=== PATIENT | female | born 1960 | race African-American/Black ===

== ENCOUNTER → 2017-04-01 | Outpatient (CLI) | payer OTHER ==
[2017-04-01 13:43] LABS: Basophils % (A) 0 %; Eosinophils # (A) 0.2 k/uL (0-0.7); Eosinophils % (A) 2 %; HCT 41.3 % (34.0-46.0); HGB 12.5 gm/dL (11.4-16.0); Hypochromasia Slight; Lymphocytes # (A) 4.1 k/uL (1.0-4.8); Lymphocytes % (A) 48 %; MCH 26.9 pg (25.0-35.0); MCHC 30.4 g/dL (31.0-37.0); MCV 88.6 fL (80.0-100.0); Mean Platelet Volume 7.3; Monocytes # (A) 0.5 k/uL (0-1.0); Monocytes % (A) 6 %; Neutrophils # (A) 3.4 k/uL (1.3-7.7); Neutrophils % (A) 40 %; Platelet Count 240 k/uL (150-450); RBC 4.66 m/uL (3.80-5.40); RDW 12.1 % (11.5-15.5); WBC 8.4 k/uL (3.8-10.6)
[2017-04-01 13:58] LABS: ALT 47 U/L (9-52); AST 38 U/L (14-36); Albumin 4.2 g/dL (3.5-5.0); Alkaline Phosphatase 92 U/L (38-126); Anion Gap 11 mmol/L; Blood Urea Nitrogen 17 mg/dL (7-17); Carbon Dioxide 26 mmol/L (22-30); Chloride 101 mmol/L (98-107); Cholesterol 233 mg/dL (<200); Glucose 89 mg/dL (74-99); Potassium 4.8 mmol/L (3.5-5.1); Sodium 138 mmol/L (137-145); Total Bilirubin 0.7 mg/dL (0.2-1.3); Total Protein 8.4 g/dL (6.3-8.2); Triglycerides 60 mg/dL (<150)
[2017-04-01 14:06] LABS: HDL Cholesterol 117 mg/dL (40-60); LDL Cholesterol,Calculated 104 mg/dL (0-99)
== END | disposition home or self-care (01) ==
LOC: LABWHC1 12:58
PROVIDERS: ATTEND Internal Medicine
DX: B18.2 Chronic viral hepatitis C (principal)
CPT/HCPCS: 36415; 80053; 80061; 85025; 86803; 87522; 87902

== ENCOUNTER → 2017-05-14 | Outpatient (CLI) | payer OTHER ==
--- NOTE | 2017-05-14 15:17 | MM ---
Reason for exam: screening (asymptomatic). Baseline mammogram. History: Patient is postmenopausal. Physical Findings: Nurse Summary: 0.25cm nodule in the right breast at 9:30, 1:00 and 2:30, a 0.25cm nodule in the left breast at 11:00 and 2:30 (nurse dw). MG Screening Mammo w CAD Bilateral CC and MLO view(s) were taken. There are scattered fibroglandular densities. There are numerous bilateral subcentimeter masses. Some are marked with BB's. Ultrasound will be performed at the palpable and will be community engagement representative of the remaining masses. These results were verbally communicated with the patient and result sheet given to the patient on 05/14/17. ASSESSMENT: Incomplete: need additional imaging evaluation, BI-RAD 0 RECOMMENDATION: Ultrasound of both breasts.
--- NOTE | 2017-05-14 15:21 | USB ---
Reason for exam: additional evaluation requested from abnormal screening. History: Patient is postmenopausal. Physical Findings: Breast exam preformed at baseline screening. US Breast Workup Limited [place] Right breast ultrasound demonstrates a 5 x 2 x 6mm oval, solid lesion at 11 o'clock, a 4 x 3 x 4mm oval, solid, hypoechoic lesion at 11 o'clock and a 6 x 2 x 8mm oval, solid lesion at 2 o'clock. Left breast ultrasound demonstrates a 4 x 3 x 4mm oval, solid, hypoechoic lesion at 12 o'clock and a 6 x 4 x 4mm oval, solid, hypoechoic lesion at 2 o'clock. These all appear somewhat similar and in light of the patients history of multifocal trauma for breast injections multifocal fat necrosis is suspected and a 6 month follow up mammogram and ultrasound are recommended. These results were verbally communicated with the patient and result sheet given to the patient on 05/14/17. ASSESSMENT: Probably benign, BI-RAD 3 RECOMMENDATION: Follow-up diagnostic mammogram and ultrasound of both breasts in 6 months.
== END | disposition home or self-care (01) ==
LOC: RADMAMWWP 12:55
PROVIDERS: ATTEND Internal Medicine
DX: Z12.31 Encounter for screening mammogram for malignant neoplasm of breast (principal); R92.8 Other abnormal and inconclusive findings on diagnostic imaging of breast
CPT/HCPCS: 77067

== ENCOUNTER 2018-08-29 21:06 | Emergency (ER) | payer OTHER ==
[2018-08-29 21:51] VITALS: TEMP 98.2
--- NOTE | 2018-08-29 22:40 | XR ---
PROCEDURE: XR knee complete RT - 3V DATE AND TIME: 08/29/2018 10:02 PM CLINICAL INDICATION: PHH; Pain TECHNIQUE: Department protocol COMPARISON: None FINDINGS: There is no fracture or malalignment. Prominent tricompartmental osteoarthritis changes not ed. The soft tissues are unremarkable. IMPRESSION: NO ACUTE PROCESS.
--- NOTE | 2018-08-29 22:44 | XR ---
PROCEDURE: XR foot complete RT - 3V DATE AND TIME: 08/29/2018 10:02 PM CLINICAL INDICATION: PHH; Pain in toes TECHNIQUE: Department protocol COMPARISON: None FINDINGS: The proximal phalanx of the fourth toe shows a oblique linear lucency, having the appearanc e of nondisplaced fracture. Correlate for point tenderness. There is no other candidate for fracture or malalignment. The soft tissues are unremarkable. IMPRESSION: Candidate for fourth toe fracture; request correlation for point tenderness.
[2018-08-29] MEDS ORDERED: KETOROLAC 60 MG/2 ML VIAL IM STA (23:29)
--- NOTE | 2018-08-29 23:31 | ED ---
Lower Extremity Injury HPI - General Source: patient Mode of arrival: ambulatory Limitations: no limitations <Lora Ware - Last Filed: 08/29/18 23:20> <Isha Lee - Last Filed: 08/30/18 06:32> - General Chief Complaint: Extremity Injury, Lower Stated Complaint: Toe Injury Time Seen by Provider: 08/29/18 23:16 - History of Present Illness Initial Comments: Patient is a 58-year-old female who presents to the emergency department complaining of right foot pain times today. Patient states she was coming into her house and tripped over one of her shoes, jamming her toes and falling forward. Patient denies any other injuries except for right knee pain and pain in her right foot. Patient denies previous injuries of right foot. (Lora Ware) - Related Data Home Medications Medication Instructions Recorded Confirmed Cyanocobalamin (Vitamin B-12) 1,000 mcg PO DAILY 08/29/18 08/29/18 [Vitamin B-12] Hydrochlorothiazide 12.5 mg PO DAILY 08/29/18 08/29/18 Sertraline [Zoloft] 100 mg PO DAILY 08/29/18 08/29/18 Turmeric/Turmeric Root Extract 1 cap PO DAILY 08/29/18 08/29/18 [Turmeric 450-50 mg Capsule] traZODone HCL [Desyrel] 100 mg PO HS 08/29/18 08/29/18 Allergies Allergy/AdvReac Type Severity Reaction Status Date / Time No Known Allergies Allergy Verified 08/29/18 23:23 Review of Systems ROS Other: All systems not noted in ROS Statement are negative. <Lora Ware - Last Filed: 08/29/18 23:20> ROS Other: All systems not noted in ROS Statement are negative. <Isha Lee - Last Filed: 08/30/18 06:32> ROS Statement: Those systems with pertinent positive or pertinent negative responses have been documented in the HPI. Past Medical History Past Medical History: Heart Failure History of Any Multi-Drug Resistant Organisms: None Reported Past Surgical History: No Surgical Hx Reported Past Psychological History: Anxiety, Depression Smoking Status: Current every day smoker Past Alcohol Use History: None Reported Past Drug Use History: None Reported <Lora Ware - Last Filed: 08/29/18 23:20> General Exam Limitations: no limitations <Lora Ware - Last Filed: 08/29/18 23:20> - General Exam Comments Initial Comments: GENERAL: Well-appearing, well-nourished and in no acute distress. HEAD: Atraumatic, normocephalic. EYES: Pupils equal round and reactive to light, extraocular movements intact, sclera anicteric, conjunctiva are normal. ENT: TMs normal, nares patent, oropharynx clear without exudates. Moist mucous membranes. NECK: Normal range of motion, supple without lymphadenopathy or JVD. LUNGS: Breath sounds clear to auscultation bilaterally and equal. No wheezes rales or rhonchi. HEART: Regular rate and rhythm without murmurs, rubs or gallops. ABDOMEN: Soft, nontender, normoactive bowel sounds. No guarding, no rebound. No masses appreciated. : Deferred EXTREMITIES: Normal range of motion of the right ankle and right knee. Tender to palpation of the right foot and third, fourth, and fifth digit. mild edema present over the right foot. NEUROLOGICAL: Cranial nerves II through XII grossly intact. Normal speech, normal gait. PSYCH: Normal mood, normal affect. SKIN: Warm, Dry, normal turgor, no rashes or lesions noted. (Lora Ware) Course Vital Signs 08/29/18 08/29/18 21:44 23:53 Temperature 98.2 F Pulse Rate 70 68 Respiratory 19 18 Rate Blood Pressure 132/72 128/75 O2 Sat by Pulse 97 98 Oximetry Medical Decision Making <Lora Ware - Last Filed: 08/29/18 23:20> <Isha Lee P - Last Filed: 08/30/18 06:32> - Medical Decision Making Patient is a 58-year-old female complaining of right foot pain after stubbing her toes today while walking into her house. On exam, she has tenderness over the third fourth and fifth phalanx of the right foot. X-ray shows a nondisplaced fracture of the right proximal phalanx of the fourth toe. Toe will be rosemary taped and patient giving postop shoe. Patient will follow up with PCP as needed. (Lora Ware) I was available for consultation in the emergency department. The history and physical exam were done by the midlevel provider. I was consulted for this patient's care. I reviewed the case with the midlevel provider and based on their presentation of the patient, I agree with the assessment, medical decision making and plan of care as documented. Chart was dictated using [employer] dictation software. Attempts were made to correct any dictation errors however some typographical errors may persist. (Isha Lee) Disposition Is patient prescribed a controlled substance at d/c from ED?: No <Lora Ware - Last Filed: 08/29/18 23:20> <Isha Lee - Last Filed: 08/30/18 06:32> Clinical Impression: Closed fracture of phalanx of right fourth toe Disposition: HOME SELF-CARE Condition: Stable Instructions (If sedation given, give patient instructions): Toe Fracture (ED) Additional Instructions: Please return to the Emergency Department if symptoms worsen or any other concerns. Follow-up with PCP as needed. Referrals: Shabbir Hilliard MD [Primary Care Provider] - 1-2 days
[2018-08-29 23:55] VITALS: BP 128/75; PULSE 68; RESP 18
== END 2018-08-29 23:54 | disposition home or self-care (01) ==
LOC: EC 21:06
DX: S92.514A Nondisplaced fracture of proximal phalanx of right lesser toe(s), initial encounter for closed fracture (principal); M25.561 Pain in right knee; I50.9 Heart failure, unspecified; F32.9 Major depressive disorder, single episode, unspecified; F41.9 Anxiety disorder, unspecified; F17.200 Nicotine dependence, unspecified, uncomplicated; Z79.899 Other long term (current) drug therapy; W01.0XXA Fall on same level from slipping, tripping and stumbling without subsequent striking against object, initial encounter; Y93.01 Activity, walking, marching and hiking; Y92.009 Unspecified place in unspecified non-institutional (private) residence as the place of occurrence of the external cause
CPT/HCPCS: 73562; 73630; 99283; 96372; J1885

== ENCOUNTER → 2018-09-02 | Outpatient (CLI) | payer OTHER ==
[2018-09-02 11:06] LABS: HCT 43.2 % (34.0-46.0); HGB 13.1 gm/dL (11.4-16.0); Hypochromasia Slight; MCH 26.5 pg (25.0-35.0); MCHC 30.4 g/dL (31.0-37.0); MCV 87.1 fL (80.0-100.0); Platelet Count 279 k/uL (150-450); RBC 4.96 m/uL (3.80-5.40); RDW 14.9 % (11.5-15.5); WBC 11.8 k/uL (3.8-10.6)
[2018-09-02 12:23] LABS: Lymphocytes # (M) 7.67 k/uL (1.0-4.8); Monocytes # (M) 0.94 k/uL (0-1.0); Neutrophils # (M) 3.19 k/uL (1.3-7.7); Neutrophils % (M) 27 %; Nucleated Red Blood Cells 0 /100 WBC (0-0); Total Cells Counted 100
[2018-09-02 12:24] LABS: Large Platelets Present
[2018-09-02 16:25] LABS: African American GFR (CKD) 80.5 (60.0-200.0); Albumin 4.4 g/dL (3.80-4.90); Albumin/Globulin Ratio 1.26 (1.60-3.17); Anion Gap 10.8 mmol/L (4.00-12.00); BUN/Creat Ratio 34.44 Ratio (12.00-20.00); Calcium 9.9 mg/dL (8.7-10.3); Carbon Dioxide 22.2 mmol/L (21.6-31.8); Globulin 3.5 g/dL (1.6-3.3); LDL Cholesterol,Calculated 132.6 mg/dL (0.0-131.0); Potassium 4.1 mmol/L (3.5-5.5); Total Bilirubin 0.6 mg/dL (0.2-1.2); Total Protein 7.9 g/dL (6.2-8.2); Uric Acid 6.8 mg/dL (2.9-7.7); VLDL Calculation 13.4 mg/dL (5.00-40.00)
== END | disposition home or self-care (01) ==
LOC: LABWHC1 10:11
PROVIDERS: ATTEND Internal Medicine
DX: K75.9 Inflammatory liver disease, unspecified (principal); G89.29 Other chronic pain; M25.561 Pain in right knee; E78.5 Hyperlipidemia, unspecified; I10 Essential (primary) hypertension
CPT/HCPCS: 36415; 80053; 80061; 84443; 84550; 85025

== ENCOUNTER → 2018-12-22 | Outpatient (CLI) | payer MEDICARE, OTHER ==
--- NOTE | 2018-12-22 13:48 | XR ---
EXAMINATION TYPE: XR pelvis AP view DATE OF EXAM: 12/22/2018 COMPARISON: NONE HISTORY: Pain The osseous structures are intact and the joint spaces are preserved. No acute fracture is seen. Vi sualized bowel gas pattern is nonspecific. Hypertrophic changes along the iliac crest bilaterally. C alcifications in pelvis are likely vascular. Osteitis of the pubis symphysis. Degenerative change low er lumbar spine. IMPRESSION: 1. No acute fracture.
--- NOTE | 2018-12-22 13:50 | XR ---
EXAM TYPE: LUMBAR SPINE X RAY SERIES COMPARISON: NONE HISTORY: Pain TECHNIQUE: 3 views are submitted. FINDINGS: Alignment is anatomic. The pedicles are intact. The transverse processes are intact. There is no s pondylolisthesis. Diffuse osteopenia with multilevel hypertrophic and degenerative disc disease. The re is a grade 1 anterolisthesis of L4 on L5. There is multilevel severe degenerative disc disease. Ag e-indeterminate appearing superior endplate compression deformity of L1 and L2. IMPRESSION: 1. Multilevel severe to degenerative disc disease and facet arthropathy with grade 1 anterolisthesis L4 on L5. Foraminal encroachment L4-5 and L5-S1 suspected. Recommend follow-up MRI. 2. Age-indeterminate mild superior endplate compression deformity L1 and L2..
--- NOTE | 2018-12-22 13:57 | XR ---
EXAMINATION TYPE: XR cervical spine limited DATE OF EXAM: 12/22/2018 COMPARISON: NONE HISTORY: Pain TECHNIQUE: 3 views are submitted. FINDINGS: The odontoid is intact. There are no compression deformities. The prevertebral soft tissue structur es are within normal limits. Large anterior hypertrophic spurs are seen at multiple levels and there is multilevel moderate degenerative disc disease. Multilevel facet arthropathy. Diffuse osteopenia n oted. IMPRESSION: 1. Multilevel degenerative disc disease and facet arthropathy suspected foraminal encroachment recomm end follow-up MRI..
== END | disposition home or self-care (01) ==
LOC: RADXRMAIN 12:57
PROVIDERS: ATTEND Chiropractor
DX: M99.01 Segmental and somatic dysfunction of cervical region (principal); M51.36 Other intervertebral disc degeneration, lumbar region; M43.16 Spondylolisthesis, lumbar region; M46.96 Unspecified inflammatory spondylopathy, lumbar region; M53.86 Other specified dorsopathies, lumbar region; M54.42 Lumbago with sciatica, left side
CPT/HCPCS: 72040; 72100; 72170